=== PATIENT | female | born 1965 | race Hispanic/Latino ===

== ENCOUNTER 2017-07-18 09:57 | Inpatient (IN) | payer BC, OTHER ==
[2017-07-18 10:36] LABS: #Basophils 0.1 thou/uL (0.0-0.2); #Lymphocytes 1.9 thou/uL (1.20-3.40); #Monocytes 0.3 thou/uL (0.11-0.59); #Neutrophils 5.5 thou/uL (1.40-6.50); %Basophils 0.6 % (0.0-1.0); %Eosinophils 0.5 % (0.0-10.0); %Lymphocytes 24.5 % (21.0-51.0); %Monocytes 3.9 % (0.0-10.0); %Neutrophils 70.5 % (42.0-75.0); Hemoglobin 10.7 g/dL (12.0-16.0); Mean Corpuscular HGB CONC 33.5 g/dL (32.0-36.0); Mean Corpuscular Hemoglobin 29.5 pg (27.0-31.0); Mean Corpuscular Volume 87.9 fl (81.0-99.0); Platelet Count 246 thou/uL (130-400); RBC Distribution Width 11.9 % (11.5-14.5); Red Blood Cell (RBC) Count 3.63 mill/uL (4.20-5.40); White Blood Cell (WBC) Count 7.9 thou/uL (4.8-10.8)
--- NOTE | 2017-07-18 10:38 | CT ---
NONCONTRAST CT HEAD: Date: 07/18/17 HISTORY: Syncope. Lightheaded feeling. Tunnel vision and nausea. COMPARISON: None available. FINDINGS: There is no evidence of a hemorrhage, acute infarction, mass effect, or midline shift. Ventricular sy stem is normal in size, shape, and position. Visualized paranasal sinuses and mastoid air cells are c lear. Calvarial structures are intact. IMPRESSION: No acute intracranial abnormality is demonstrated. POS: ZAHRAA
--- NOTE | 2017-07-18 10:38 | RAD ---
CHEST 1 VIEW: Date: 07/18/17 HISTORY: Syncope. COMPARISON: None. FINDINGS: Lungs are clear. No pneumothorax or effusion. Cardiac silhouette and mediastinal contours within norm al limits. IMPRESSION: No acute intrathoracic abnormality. POS: ASHLYNH
[2017-07-18 10:53] LABS: ALT (SGPT) 66 U/L (8-55); AST (SGOT) 39 U/L (5-34); Albumin 4.5 g/dL (3.5-5.0); Alkaline Phosphatase 80 U/L (40-150); Anion Gap 12 mmol/L (10-20); BUN (Urea Nitrogen) 24 mg/dL (9.8-20.1); Bilirubin, Total 0.2 mg/dL (0.2-1.2); Calc. Creatinine Clearance 0 mL/min (70-130); Calcium 9.7 mg/dL (7.8-10.44); Carbon Dioxide 22 mmol/L (22-29); Chloride 107 mmol/L (98-107); Estimated GFR-MDRD Greater than 90; Globulin 3.1 g/dL (2.4-3.5); Glucose 93 mg/dL (70-105); Potassium 4.3 mmol/L (3.5-5.1); Protein, Total 7.6 g/dL (6.0-8.3); Sodium 137 mmol/L (136-145)
[2017-07-18] MEDS ORDERED: Pantoprazole 40 MG VIAL ONE (12:00)
[2017-07-18] MEDS ORDERED: Ondansetron HCl/PF 4 MG/2 ML Vial IVP PRN (14:04)
[2017-07-18] MEDS ORDERED: Ondansetron ODT 4 MG TAB PO PRN (14:04)
[2017-07-18] MEDS ORDERED: Dextrose 5 % And 0.9 % NaCl 1,000 ML IV SCH (14:15)
[2017-07-18] MEDS ORDERED: Lidocaine 1% PF 5 ML VIAL ONE (14:19)
[2017-07-18] MEDS ORDERED: Ondansetron HCl/PF 4 MG/2 ML Vial ONE (14:19)
[2017-07-18] MEDS ORDERED: Propofol 200 MG/20 ML VIAL ONE (14:19)
[2017-07-18] MEDS: Pantoprazole 80 MG in Sodium Chloride 0.9% 100 ML IVP SCH (16:19)
--- NOTE | 2017-07-18 16:57 | HP ---
DATE OF ADMISSION: 07/18/2017 CHIEF COMPLAINT: Syncope. HISTORY OF PRESENT ILLNESS: This is a 52-year-old female, who has a known history of hyperc holesterolemia, was feeling tired for the past few days and this morning around 1:30, she had a synco pal episode and she was feeling dizzy. The patient was immediately brought to the ER for further lois luation. When the patient arrived, she had hemoglobin of 10.4 and was having black stools. The michael ent mentioned she was having black stool since yesterday, but no joseph blood. She denied having any chest pain, no nausea, no vomiting, no diarrhea, no constipation. The patient is on Motrin, she take s 2 tablets in the night and 2 tablets in the morning for her right knee pain. She has been on this for quite a long time. Initially, she complained of pain in her knee where her primary doctor was re ferred to Orthopedics and started the patient on Motrin. The patient otherwise has no medical issues . The patient is seen by GI here, who planned to do the EGD. PAST MEDICAL HISTORY: 1. Hypercholesterolemia. 2. History of cervical cancer, where all the records are not available at this time and the patient is not sure of what type of cancer it is. PAST SURGICAL HISTORY: None. SOCIAL HISTORY: No history of smoking. No history of alcohol, no history of illicit drug use. FAMILY HISTORY: No significant family history of coronary artery disease, but cancer runs in her fam charles. Her mother of some sort of pelvic cancer, which the patient is not aware of. REVIEW OF SYSTEMS: All 12 systems are reviewed with the patient thoroughly along with the daughter a t the bedside. All systems are reviewed and all systems are reviewed and found to be negative at thi s time. The following complete review of systems was negative, unless otherwise mentioned in the HPI or below : Constitutional: Weight loss or gain, sense of well-being, ability to conduct usual activities, exerc ise tolerance. Skin/Breast: Rash, itching, changes in hair growth or loss, nail changes, breast lumps, tenderness, swelling, nipple discharge. Eyes: Vision, double vision, tearing, blind spots, pain. ENT/Mouth: Headaches (location, time of onset, duration, precipitating factors), vertigo, lightheade dness, injury. Vision, double vision, tearing, blind spots, pain, nose bleeding, colds, obstruction, discharge, dental difficulties, gingival bleeding, dentures, neck stiffness, pain, tenderness, gabriel s in thyroid or other areas. Cardiovascular: Precordial pain, substernal distress, palpitations, syncope, dyspnea on exertion, or thopnea, nocturnal paroxysmal dyspnea, edema, cyanosis, hypertension, heart murmurs, varicosities, ph lebitis, claudication. Respiratory: Pain, shortness of breath, wheezing, stridor, cough, hemoptysis, fever or night sweats. Gastrointestinal: Poor appetite, dysphagia, indigestion, abdominal pain, heartburn, eructation, naus ea, vomiting, hematemesis, jaundice, constipation, or diarrhea, abnormal stools (ara-colored, tarry, bloody, greasy, foul smelling), flatulence, hemorrhoids, recent changes in bowel habits. Genitourinary: Urgency, frequency, dysuria, nocturia, hematuria, polyuria, oliguria, unusual (or lloyd nge in) color of urine, stones, hesitancy, change in size of stream, dribbling, acute retention or in continence, libido, potency. Musculoskeletal: Pain, swelling, redness or heat of muscles or joints, limitation of motion, muscula r weakness, atrophy, cramps. Neurologic/Psychiatric: Convulsions, paralyses, tremor, incoordination, paresthesias, difficulties w ith memory of speech, sensory or motor disturbances, or muscular coordination (ataxia, tremor), emoti onal problems, anxiety, depression, previous psychiatric care, unusual perceptions, hallucinations. Allergy/Immunologic: Skin rash, anemia, bleeding tendency, polydipsia, polyuria, intolerance to heat or cold. HOME MEDICATIONS: None except for Motrin. ALLERGIES: No known drug allergies. PHYSICAL EXAMINATION: VITAL SIGNS: Blood pressures are 130/80, heart rate is 88, respiratory rate 18, saturations 98%. GENERAL: The patient is moderately built and moderately nourished, does not appear to be in acute di stress at this time. She is alert and oriented x3. HEENT: Atraumatic, normocephalic. PERRLA. Extraocular movements were intact. Oral mucosa is pink and moist. CARDIOVASCULAR: S1, S2 normal. No murmurs, rubs or gallops. LUNGS: Bilateral air entry was equal. No wheezing, no crackles. ABDOMEN: Soft, nontender, no guarding, no rebound tenderness. Bowel sounds are normal. MUSCULOSKELETAL: No calf tenderness. No pedal edema. No joint tenderness, no joint swelling. SKIN: No cyanosis, no erythema, no rash, no pallor. NEUROLOGIC: Cranial examination II-XII intact. No focal deficits were noted at this time. LABORATORY DATA: WBC is 7.9, hemoglobin is 10.7, hematocrit is 31.9, and platelets 246. Sodium is 1 37, potassium is 4.3, chloride is 107, bicarbonate is 22, BUN is 24, creatinine is 0.67, AST is 39, a nd ALT is 66. IMAGING: CT of the head was done and chest x-ray was done, unremarkable both. Chest x-ray was unrem arkable. No evidence of an acute cardiopulmonary process. ASSESSMENT AND PLAN: 1. Acute upper gastrointestinal bleed. 2. Anemia of acute blood loss. 3. Moderate dehydration. 4. History of hyperlipidemia. 5. Elevated liver enzymes. PLAN: 1. Plan is to closely monitor this patient. We will repeat hemoglobin at 1800. If the patient's he moglobin drops further to less than 8, we will plan for blood transfusion as the patient's hemoglobin was more than 11 before. GI has been consulted and Dr. Patiño will see the patient and possibly plan for EGD tomorrow or later this afternoon as the patient is n.p.o. at this time. We will start the pa tient on Protonix drip and will closely monitor. 2. The patient has low hemoglobin as explained above is 10.4. We will repeat hemoglobin at 1800 and plan to repeat hemoglobin tomorrow. If the patient drops hemoglobin to less than 7, we will plan to start her on blood transfusion and will also do iron levels and will start the patient on iron table ts tomorrow. 3. The patient has moderate dehydration. We will start the patient on normal saline at this time at 100 mL hour and closely monitor. The patient has history of hyperlipidemia. We will hold off on th e oral medications at this time and keep the patient n.p.o. 4. Deep venous thrombosis prophylaxis, sequential compression devices. 5. The patient has elevated liver enzymes. We will do ultrasound of the liver to look for any evide nce of gallbladder problems as she has elevated liver enzymes, but no Blake sign was noted at this t jackie. I spent 75 minutes with this patient.
[2017-07-18 19:06] VITALS: BMI 25.9
[2017-07-18 19:19] LABS: Hemoglobin 9.5 g/dL (12.0-16.0)
[2017-07-18] MEDS: Sodium Chloride 0.9% 1,000 ML IV SCH (19:45)
[2017-07-18] MEDS: Melatonin 3 MG TAB PO PRN (23:15)
--- NOTE | 2017-07-19 | CON ---
DATE OF CONSULTATION: 07/18/2017 REFERRING PHYSICIAN: Dr. Mina, [facility]. REASON FOR CONSULTATION: History of black tarry stool and syncope this morning. HISTORY OF PRESENT ILLNESS: Ms. Mariella Olivo is a very pleasant 52-year-old female w ho is a regular patient of Dr. Jeff Hawley. The patient does take baby aspirin once a day for sever al years. She is also taking Motrin twice a day for some knee pain. The patient developed some magdalena k tarry stool yesterday. She had two stools yesterday. She had 2 more stool today. This morning, s he felt faint and suddenly she passed out. She was initially seen by office and subsequent ly was referred to [facility]. The patient was found to have mild anemia. The hemoglobin is 10.7 , hematocrit is 31.9. The patient has no prior history of peptic ulcer disease. No history of heart burn, dyspepsia, indigestion. There is no prior history of GI bleeding. Her bowel movements are cony rly regular. No history of hematochezia. The patient had a syncopal episode approximately about six months ago as per the patient's family. She has met Dr. Jeff Hawley and was done. The patie nt has had no seizure disorder, no chronic headache. She has no relevant history. ALLERGIES: None. SOCIAL HISTORY: Patient is . She does not smoke or drink alcohol. MEDICAL ILLNESSES: 1. Hyperlipidemia. 2. History of knee pain for several months. 3. History of cervical cancer in [id number] and was seen in [facility]. Apparently, she has some procedure done and she has been there for followup every 6 months for two years. Subsequent release for followup. SURGERIES: Tubal ligation. FAMILY HISTORY: Her brother had some cancer, but site is unknown, possibly gastric versus uterine. MEDICATIONS: Aspirin, Motrin. REVIEW OF SYSTEMS: A 10-point review. Constitutional: No history of fever, no night sweats. Good appetite, no weight loss. RETAIL LOAN ORIGINATOR ASSISTANT: History of syncope at this morning and she had a syncopal episode si x months ago. No history of seizure disorder. No history of chronic headache, no TIA. Respiratory: No history of chronic cough, hemoptysis, dyspnea. Cardiovascular: No chest pain, no palpitation, n o dyspnea, orthopnea or PND. Gastrointestinal: As in history of present illness. Genitourinary: N o dysuria, hematuria or frequent urination. Gynecological: No history of any renal bleeding. Muscu loskeletal: History of knee pain and has been taking Motrin off and on. Neurologic, Endocrine, Michael tological: Nonrelevant. PHYSICAL EXAMINATION: GENERAL: She is awake, alert, oriented to time, place and person. She does not speak Hungarian and mo st of the history was obtained talking to the family. Her son, , and also daughter is in the room. VITAL SIGNS: Pulse is 80, blood pressure 125/70. HEENT: Conjunctivae clear. NECK: Supple. No adenitis or thyromegaly noted. CARDIOVASCULAR: First and second heart sounds were normal. LUNGS: Clear to auscultation. ABDOMEN: Abdomen is soft. Abdomen is nondistended. Abdomen is nontender. There is no organomegaly or masses. EXTREMITIES: Reveal no edema. LABORATORY DATA AND X-RAY FINDINGS: Shows mild anemia, hemoglobin 10.7, hematocrit 31, MCV normal, p latelet count is 246,000, polymorphs 70, lymphocytes 24, WBC 7900. Chem-7 shows mildly elevated BUN of 24, most recent bleeding. Her electrolytes are normal. Her AST is 39, ALT is 66, bilirubin is 0. 2, alkaline phosphatase is 80. CLINICAL IMPRESSION: A 52-year-old female with history of black tarry stool since yesterday. She johnson d a syncopal episode this morning with some bleeding. The patient has two stools today, but has had no stool anymore. She has no abdominal pain, no nausea, no vomiting. No prior history of peptic ulc er. 1. Hyperlipidemia. 2. Abnormal liver function tests, most likely drug induced. However, she does have a further workup done to rule out any hepatitis C. RECOMMENDATIONS: 1. IV PPI. 2. Follow up H&H. 3. Transfuse p.r.n. 4. EGD today and I will make further recommendations.
[2017-07-19] MEDS: Sodium Chloride 0.9% 1,000 ML IV SCH ×3 (02:27→23:19)
[2017-07-19] MEDS: Pantoprazole 80 MG in Sodium Chloride 0.9% 100 ML IVP SCH ×2 (02:35→13:26)
[2017-07-19] MEDS: Acetaminophen 325 MG TAB PO PRN ×2 (02:35→21:38)
[2017-07-19 05:36] LABS: #Eosinphils 0.1 thou/uL (0.0-0.7); #Lymphocytes 2.2 thou/uL (1.20-3.40); #Monocytes 0.3 thou/uL (0.11-0.59); #Neutrophils 2.5 thou/uL (1.40-6.50); %Basophils 0.4 % (0.0-1.0); %Eosinophils 2.3 % (0.0-10.0); %Lymphocytes 43.4 % (21.0-51.0); %Monocytes 5.7 % (0.0-10.0); %Neutrophils 48.2 % (42.0-75.0); Hemoglobin 8.1 g/dL (12.0-16.0); Mean Corpuscular HGB CONC 33.5 g/dL (32.0-36.0); Mean Corpuscular Hemoglobin 29.8 pg (27.0-31.0); Mean Corpuscular Volume 88.9 fl (81.0-99.0); Mean Platelet Volume 6.7 fL (7.4-10.4); Platelet Count 165 thou/uL (130-400); Red Blood Cell (RBC) Count 2.72 mill/uL (4.20-5.40); White Blood Cell (WBC) Count 5.1 thou/uL (4.8-10.8)
[2017-07-19 05:49] LABS: Anion Gap 9 mmol/L (10-20); BUN (Urea Nitrogen) 13 mg/dL (9.8-20.1); Calc. Creatinine Clearance 84 mL/min (70-130); Calcium 8.3 mg/dL (7.8-10.44); Carbon Dioxide 24 mmol/L (22-29); Chloride 113 mmol/L (98-107); Estimated GFR-MDRD 82; Glucose 86 mg/dL (70-105); Potassium 4.3 mmol/L (3.5-5.1); Sodium 142 mmol/L (136-145)
--- NOTE | 2017-07-19 07:02 | OP ---
DATE OF SURGERY: 07/18/2017 OPERATIVE PROCEDURE: Esophagogastroduodenoscopy with biopsy. PREOPERATIVE DIAGNOSES: A 52-year-old Latin-[place]inid[place] female with black tarry stool since yesterday, having syncopal episode this morning. The patient underwent esophagogastroduodenoscopy. POSTOPERATIVE DIAGNOSES: 1. Three gastric ulcers over the gastric antrum. 2. One ulcer in the duodenal bulb. All the ulcers were nonbleeding and also the ulcer bases appears clean .. PROCEDURE NOTE: The patient was placed on her left lateral position under given sedation by Anesthesia Department. A Pentax video gastroscope under direct vision was passed down the oropharynx, past the GE junction, into the stomach and subsequently into the descending duodenum. The esophageal mucosa appears normal. The GE junction showed mild friability and erythema. No active bleeding seen. The stomach was completely free of any blood. There is no old blood or any coffee-ground material. The fundus, cardia and gastric body , no pathology seen. The gastric antrum shows multiple ulcerations. One of the ulcers was very large and measured approximately around 2 cm in length and 1 cm in width. The ulcer base appears clean. Water was used to irrigate and wash out that area, but I do not see any visible vessel. The ulcer margin one area appears slightly erythematous. There are two more ulcers. Both ulcers appear to besmall maybe about 6 to 7 mm in size. The duodenal bulb showed another ulceration. Again, the ulcer base appears clean. The descending duodenum, no pathology seen. Biopsy obtained from the gastric antrum and gastric body. The stomach was decompressed and scope removed. RECOMMENDATIONS: 1. Continue IV Protonix. 2. Clear liquid diet. 3. Follow up H and H. MTDD
--- NOTE | 2017-07-19 08:34 | ULT ---
RIGHT UPPER QUADRANT ULTRASOUND: Date: 07/19/17 PROVIDED CLINICAL HISTORY: Elevated liver enzymes. FINDINGS: There is a focal, somewhat mass-like area of altered echogenicity measuring about 3.0 cm in the regio n of the pancreatic tail. This could reflect a pancreatic mass or possibly a splenule. The visualized IVC appears normal. Liver diffusely echogenic, compatible with fatty infiltration, without evidence for mass or intrahepatic biliary ductal dilatation. Common duct is not dilated. Gallbladder demonstra elvira no stones, wall thickening, or pericholecystic fluid. Right kidney demonstrates no hydronephrosis or mass. IMPRESSION: 1. Fatty infiltration of the liver. 2. Pancreatic tail mass versus splenule. Correlation with CT abdomen pancreatic protocol recommended . POS: ZAHRAA
[2017-07-19] MEDS ORDERED: FLU VACC QS2017-18 36 mo. & older 0.5 ML SYRINGE IM ONE (09:00)
--- NOTE | 2017-07-19 12:41 | PDOC.PN ---
- Subjective Encounter Start Date: 07/19/17 Encounter Start Time: 10:00 Patient is seeen today, alert and oriented. No other Concer snoted. Discussed with Daughter About the EGD, and US findings of Mass on pancreas. - Objective Resuscitation Status: Resuscitation Status FULL:Full Resuscitation MAR Reviewed: Yes Vital Signs & Weight: Vital Signs (12 hours) Temp Pulse Resp BP Pulse Ox 07/19/17 08:34 97.8 F 85 17 111/59 L 98 07/19/17 04:00 97.6 F 68 16 94/52 L 95 Weight Weight 132 lb 11.2 oz I&O: 07/18/17 07/19/17 07/20/17 06:59 06:59 07:59 Intake Total 1690 Balance 1690 Result Diagrams: 07/19/17 05:29 07/19/17 05:29 Radiology Reviewed by me: Yes EKG Reviewed by me: Yes Phys Exam - Physical Examination HEENT: PERRLA, moist MMs Neck: no nodes, no JVD Respiratory: no wheezing, no rales Cardiovascular: RRR, no significant murmur Gastrointestinal: soft, non-tender Musculoskeletal: no edema, pulses present Neurological: non-focal, normal sensation Lymphatic: no nodes Psychiatric: normal affect, A&O x 3 Skin: no rash, normal turgor Dx/Plan (1) Acute gastric ulcer with bleeding Code(s): K25.0 - ACUTE GASTRIC ULCER WITH HEMORRHAGE Status: Acute Comment: EGD showed 2cm ulcer on Antrum, Pt on protonix drip, will transiotion to IV protionic, biospy of the ulcer edge takem, pending resilts. Clear liquid diet today. (2) Acute blood loss anemia Code(s): D62 - ACUTE POSTHEMORRHAGIC ANEMIA Status: Acute Comment: Drop in Hb noted, Will start on iron Meds, will recheck Hb at 1600, if less then 7 will do PRBC transfusion.Will monitor her until Hb stbailizes. (3) Pancreatic mass Status: Acute Comment: Will do a CT with pancreatic protocol, Family h/o Abdominal malignancy per Daughter. Will evaalute after the CT results. (4) Moderate dehydration Code(s): E86.0 - DEHYDRATION Status: Acute Comment: resloved. (5) Syncope Code(s): R55 - SYNCOPE AND COLLAPSE Status: Acute Qualifiers: Syncope type: vasovagal syncope Qualified Code(s): R55 - Syncope and collapse Comment: Likely from Anemia or vasovagal. Will tamy Monitor with pt/OT evaluation. - Plan cont current plan of care, plan discussed w/ family, PT/OT, DVT proph w/SCDs * . - Discharge Day Encounter end time: 10:35 Review of Systems - Review of Systems Constitutional: negative: fever, chills, sweats, weakness, malaise, other Eyes: negative: Pain, Vision Change, Conjunctivae Inflammation, Eyelid Inflammation, Redness, Other ENT: negative: Ear Pain, Ear Discharge, Nose Pain, Nose Discharge, Nose Congestion, Mouth Pain, Mouth Swelling, Throat Pain, Throat Swelling, Other Respiratory: negative: Cough, Dry, Shortness of Breath, Hemoptysis, SOB with Excertion, Pleuritic Pain, Sputum, Wheezing Cardiovascular: negative: chest pain, palpitations, orthopnea, paroxysmal nocturnal dyspnea, edema, light headedness, other Gastrointestinal: Abdominal Pain. negative: Nausea, Vomiting, Diarrhea, Constipation, Melena, Hematochezia, Other Genitourinary: negative: Dysuria, Frequency, Incontinence, Hematuria, Retention , Other Musculoskeletal: negative: Neck Pain, Shoulder Pain, Arm Pain, Back Pain, Hand Pain, Leg Pain, Foot Pain, Other Skin: negative: Rash, Lesions, Da, Bruising, Other Neurological: negative: Weakness, Numbness, Incoordination, Change in Speech, Confusion, Seizures, Other - Medications/Allergies Allergies/Adverse Reactions: Allergies Allergy/AdvReac Type Severity Reaction Status Date / Time No Known Allergies Allergy Unverified 07/18/17 19:08 Medications: Current Medications Acetaminophen (Tylenol) 650 mg PO Q4H PRN PRN Reason: Headache/Fever or Mild Pain Last Admin: 07/19/17 02:35 Dose: 650 mg Docusate Sodium (Colace) 100 mg PO BIDPRN AMEE Sodium Chloride (Normal Saline 0.9%) 1,000 mls @ 100 mls/hr IV .Q10H AMEE Last Admin: 07/19/17 02:27 Dose: 1,000 mls Pantoprazole Sodium 80 mg/ (Sodium Chloride) 100 mls @ 10 mls/hr IVP INF AMEE Last Admin: 07/19/17 02:35 Dose: 100 mls Melatonin (Melatonin) 3 mg PO HS PRN PRN Reason: Insomnia Last Admin: 07/18/17 23:15 Dose: 3 mg Sodium Chloride (Flush - Normal Saline) 10 ml IVF Q12HR AMEE Last Admin: 07/19/17 09:12 Dose: Not Given Sodium Chloride (Flush - Normal Saline) 10 ml IVF PRN PRN PRN Reason: Saline Flush
[2017-07-19] MEDS: Docusate 100 MG CAP PO SCH (13:25)
--- NOTE | 2017-07-19 13:34 | CT ---
CT OF ABDOMEN AND PELVIS PERFORMED WITH AND WITHOUT CONTRAST ENHANCEMENT: Date: 07/19/17 HISTORY: Follow-up for evaluation of a cystic appearing mass in the pancreatic body/tail region noted on recen t ultrasound examination. COMPARISON: Ultrasound study performed earlier today. FINDINGS: This was done as a three phase study per the pancreatic mass protocol. The lung bases are clear. The liver and spleen are normal in size. No evidence of any mass. Gallbladder region is unremarkable. Right and left adrenal glands, and right and left kidneys are normal in size. No significant periaort ic or mesenteric adenopathy. There is a 2.8 cm low attenuation mass within the pancreatic body. It has CT Hounsfield unit numbers of 6 on the precontrast images, only increasing to 17 on the postcontrast images, still falling withi n a cystic range. It does not show any soft tissue nodularity. There are no calcifications. There gallegos s not appear to be any communication with the pancreatic duct. IMPRESSION: Cystic mass of the pancreas. This does not have definitive malignant features. In a patient of this a ge and with location in the body region, one of the prime considerations would be mucinous cystic rizo creatic tumor, although entities such as pseudocyst, given appropriate clinical history, would be oth er possibilities. I would recommend GI consultation and consideration for endoscopic ultrasound for f ollow-up and for decision making for further imaging follow-up. POS: ZAHRAA
[2017-07-19] MEDS ORDERED: ISOVUE-370 76%-LOCM 1 ML ONE (13:56)
[2017-07-19 16:33] LABS: #Eosinphils 0.1 thou/uL (0.0-0.7); #Lymphocytes 2.3 thou/uL (1.20-3.40); #Monocytes 0.2 thou/uL (0.11-0.59); #Neutrophils 2.9 thou/uL (1.40-6.50); %Basophils 0.1 % (0.0-1.0); %Eosinophils 1.7 % (0.0-10.0); %Lymphocytes 41.3 % (21.0-51.0); %Monocytes 4.3 % (0.0-10.0); %Neutrophils 52.6 % (42.0-75.0); Hemoglobin 8.3 g/dL (12.0-16.0); Mean Corpuscular HGB CONC 34.3 g/dL (32.0-36.0); Mean Corpuscular Hemoglobin 30.4 pg (27.0-31.0); Mean Corpuscular Volume 88.6 fl (81.0-99.0); Mean Platelet Volume 6.6 fL (7.4-10.4); Platelet Count 166 thou/uL (130-400); Red Blood Cell (RBC) Count 2.71 mill/uL (4.20-5.40); White Blood Cell (WBC) Count 5.6 thou/uL (4.8-10.8)
--- NOTE | 2017-07-19 21:04 | PRG ---
DATE OF SERVICE: 07/19/2017 SUBJECTIVE: This is a 52-year-old Latin-Bangl[place] female hospitalized with anemia, history of melena stool and syncope. She had a EGD done yesterday and was found to have multiple gastric ulcers. The ulcers were nonbleeding. The patient has done very well overnight without any problem. No abdominal pain, no nausea, no vomiting. She has seen no stool over the last 24 hours. Her blood count on adm ission 10.7 has dropped to 8.1 today, most likely hemodilution as the BUN has dropped from 24-13. Th e patient is passing some flatus, but had no stool. She is not feeling dizzy and she is ambulatory. OBJECTIVE: VITAL SIGNS: Stable. Her pulse is 92 and blood pressure 108/55. HEENT: Conjunctivae clear. LUNGS: Within normal limits. ABDOMEN: Soft to palpate. No organomegaly. No tenderness. No masses. LABORATORY AND IMAGING DATA: The most recent lab data shows mild drop in blood count 8.1 and 24.2. She had abdominal sonogram because of abnormal LFTs. Sonogram showed no gallstones or any new abnorm ality. She was found to have a lesion tail of the pancreas and a subsequent CAT scan done showed a 2 .8 cm cystic lesion in the pancreas. CLINICAL IMPRESSION: 1. Gastrointestinal bleeding. 2. Gastric ulcer. 3. Pancreatic cystic lesion, needs further evaluation and endosonography. RECOMMENDATIONS: 1. Advance regular diet. 2. Follow hemoglobin and hematocrit. 3. Continue proton-pump inhibitor. 4. Arrange for an outpatient endosonography in the near future.
[2017-07-19] MEDS: Melatonin 3 MG TAB PO PRN (23:13)
[2017-07-20 04:44] LABS: #Eosinphils 0.2 thou/uL (0.0-0.7); #Lymphocytes 2.5 thou/uL (1.20-3.40); #Monocytes 0.4 thou/uL (0.11-0.59); #Neutrophils 2.8 thou/uL (1.40-6.50); %Basophils 0.2 % (0.0-1.0); %Eosinophils 2.7 % (0.0-10.0); %Lymphocytes 41.9 % (21.0-51.0); %Monocytes 7.1 % (0.0-10.0); Hemoglobin 7.8 g/dL (12.0-16.0); Mean Corpuscular HGB CONC 34.3 g/dL (32.0-36.0); Mean Corpuscular Hemoglobin 30.6 pg (27.0-31.0); Mean Corpuscular Volume 89.1 fl (81.0-99.0); Mean Platelet Volume 6.9 fL (7.4-10.4); Platelet Count 174 thou/uL (130-400); Red Blood Cell (RBC) Count 2.55 mill/uL (4.20-5.40); White Blood Cell (WBC) Count 5.9 thou/uL (4.8-10.8)
[2017-07-20 08:11] VITALS: TEMP 97.8
[2017-07-20] MEDS: Sodium Chloride 0.9% 1,000 ML IV SCH (09:58)
[2017-07-20 10:05] VITALS: BP 113/73
[2017-07-20] MEDS: Docusate 100 MG CAP PO SCH (11:40)
--- NOTE | 2017-07-20 13:23 | DIS ---
DATE OF ADMISSION: 07/18/2017 DATE OF DISCHARGE: 07/20/2017 ADMITTING DIAGNOSIS: Acute upper gastrointestinal bleed. DISCHARGE DIAGNOSIS: Acute upper gastrointestinal bleed. SECONDARY DIAGNOSES: 1. Acute gastric ulcers. 2. Acute anemia of blood loss. 3. Iron deficiency anemia. 4. Acute syncope. 5. Moderate dehydration. CONSULTANTS INVOLVE IN THE CARE: Dr. Patiño from Gastroenterology. PROCEDURES DONE DURING THIS ADMISSION: EGD showing an evidence of gastric ulcers of the antrum. Thr ee ulcers were found, one is 2 cm, another is 9 mm. HISTORY OF PRESENT ILLNESS AND HOSPITAL COURSE: In brief, this is a 52-year-old female with known history of hypercholesterolemia, was feeling tired and dizzy and presyncopal episode at home d ue to which patient was brought to the ER by her daughters. The patient was noted to have hemoglobin of 10.4 and having black stools, so GI was consulted and EGD was performed which showed an evidence of a gastric antral ulcers and biopsies were taken at that time. The patient was on Motrin for chron ic knee pain and she is to take it religiously twice a day 400 mg and the patient is educated to not be on any NSAIDs at this time. Her hemoglobin was closely monitored. Her hemoglobin the day of disc harge was 7.8 and discussed this with Dr. Patiño who suggested to put the patient on iron medications a t this time and I will closely monitor. The patient was having one black stool on the day of dischar ge and otherwise no frequent bowel movements. The patient's family is informed about any frequent bl ack stools to bring the patient back to the ER for further evaluation and advised to avoid all NSAIDs and even aspirin. The patient was discharged home in stable condition. PHYSICAL EXAMINATION: VITAL SIGNS: Blood pressures are 113/73, heart rate is 81, respirations 18, saturations 92%. GENERAL: The patient is moderately built, moderately nourished, does not appear to be in acute distr ess at this time. Alert, oriented x3. HEENT: Atraumatic, normocephalic. PERRLA. Extraocular movement are intact. Oral mucosa is pink an d moist. CARDIOVASCULAR: S1, S2 normal. No murmurs, rubs or gallops. LUNGS: Bilateral air entry was equal. No wheezing, no crackles. ABDOMEN: Soft, nontender. No guarding. No rebound tenderness. Bowel sounds normal. HOME MEDICATIONS: Pravastatin 10 mg p.o. daily. NEW MEDICATIONS: Ferrous sulfate 325 mg p.o. b.i.d., melatonin 3 mg p.o. at bedtime for insomnia and pantoprazole 40 mg p.o. b.i.d., continue for 1 month. DISCHARGE INSTRUCTIONS: 1. ACTIVITY: Continue activity as tolerated. 2. Advised to follow up with Gastroenterology in 1-2 weeks for ruling out pancreatic cyst. Patient is scheduled to do transesophageal ultrasound. 3. DIET: Continue with the bland diet. Advised to avoid spicy food and advised to monitor for any multiple black stools, to return back to the ER. I spent 35 minutes with this patient.
[2017-07-20] MEDS ORDERED: Ferrous Sulfate 325 MG TAB PO SCH (17:00)
--- NOTE | 2017-07-20 17:38 | PRG ---
DATE OF SERVICE: 07/20/2017 SUBJECTIVE: This is a 52-year-old Latin-[place] female hospitalized over the weekend with syncope, history of black tarry stool and anemia. Admitting hemoglobin is 10.7 which is decreasing down slowly. However, the patient has no active bleeding. She had one stool yesterday morning and the stool was starry. Since that time, she had no more black stool. She does not feel dizzy. She is ambulatory. The hemoglobin today has dropped to 7.8, most likely from redistribution of the blood volume than active bleeding. An abdominal CAT scan shows a 3 cm cystic mass in the tail of pancreas. OBJECTIVE: GENERAL: Awake, alert, and communicative. VITAL SIGNS: Stable. Afebrile, pulse is 81, blood pressure is 130/73. LUNGS: Within normal limits. ABDOMEN: Soft, nontender. No organomegaly. CLINICAL IMPRESSION: 1. Gastric ulcer x4. Recent bleeding. 2. Drop in her blood count from 8.3 to 7.8 today and most likely redistribution of blood volume than active bleeding. She has had no stool over the last 24 hours. 3. Pancreatic cyst needs evaluation by [facility]. RECOMMENDATION: 1. From GI standpoint, she can be discharged home on Protonix 40 once a day. 2. Iron supplement. 3. The patient advised to take it easy for the next 1 week or so. 4. The patient will come back to me in 2 weeks and plan for the endosonography as an outpatient. SHAMAR
== END 2017-07-20 13:05 | disposition home or self-care (01) | DRG 378 ==
LOC: EEVIPCON 09:57 → ERS 09:57 → 2NO 12:45 → T4-B 07-19 16:54
PROVIDERS: ADMIT Family Medicine; ATTEND Family Medicine
PROC: 0DB68ZX Excision of Stomach, Via Natural or Artificial Opening Endoscopic, Diagnostic (ICD-10-PCS; principal; 2017-07-18)
DX: K25.0 Acute gastric ulcer with hemorrhage (principal); K86.2 Cyst of pancreas; D62 Acute posthemorrhagic anemia; R55 Syncope and collapse; K26.9 Duodenal ulcer, unspecified as acute or chronic, without hemorrhage or perforation; E86.0 Dehydration; E78.00 Pure hypercholesterolemia, unspecified; Z85.41 Personal history of malignant neoplasm of cervix uteri; D50.9 Iron deficiency anemia, unspecified; M25.569 Pain in unspecified knee; Z79.1 Long term (current) use of non-steroidal anti-inflammatories (NSAID); Z79.82 Long term (current) use of aspirin
CPT/HCPCS: 36415; 70450; 71045; 74170; 76705; 80048; 80053; 82274; 85025; 86850; 86900; 86901; 88305; 88312; 93005; 94760; 96361; 96374; A4216; C9113; G8978-GP-CI; G8979-GP-CI; G8980-GP-CI; J2001; J2405; J2704; J7050

== ENCOUNTER 2017-10-15 06:30 | Day surgery (SDC) | payer BC ==
[2017-10-14 13:45] VITALS: BMI 28.9
--- NOTE | 2017-10-15 05:44 | HP ---
DATE OF ADMISSION: 10/15/2017 SHORT-STAY HISTORY AND PHYSICAL HISTORY OF PRESENT ILLNESS: This is a 52-year-old Latin-[place]ym[place] female with history of bleeding ulc er disease, 3 months ago. She had an EGD and found to have gastric ulcer and also ulcer in the duode nal bulb. The patient has done very well since the last admission. She was asymptomatic. Her blood count was getting better. She had no abdominal pain. No nausea or vomiting. The patient comes in for an EGD for ulcer healing. MEDICAL ILLNESSES: 1. Gastric ulcer - duodenal ulcer. 2. Recent GI bleeding. 3. Depression. 4. Hyperlipidemia. ALLERGIES: None. PHYSICAL EXAMINATION: VITAL SIGNS: Pulse 70, blood pressure 110/70. HEENT: Conjunctivae clear. CARDIOVASCULAR SYSTEM: Within normal limits. LUNGS: Within normal limits. ABDOMEN: Soft to palpate. No organomegaly. No tenderness. No masses. ADMITTING DIAGNOSES: Gastric ulcer - duodenal ulcer. The patient had recent gastrointestinal bleedi ng. The patient to undergo EGD for ulcer healing.
[2017-10-15] MEDS ORDERED: PROPOFOL 200 MG/20 ML VIAL ONE (15:32)
[2017-10-15] MEDS ORDERED: Lidocaine 1% PF 5 ML VIAL ONE (15:32)
--- NOTE | 2017-10-15 16:14 | OP ---
DATE OF SURGERY: 10/15/2017 OPERATIVE PROCEDURE: Esophagogastroduodenoscopy. PREOPERATIVE DIAGNOSIS: A 52-year-old Latin-[place] female with gastrointestinal bleeding with esophagogastroduodenoscopy showing gastric ulcer and also a duodenal ulcer. The patient was on medical therapy for 3 months. The patient is undergoing followup esophagogastroduodenoscopy. POSTOPERATIVE DIAGNOSES: 1. Healed gastric ulcer. 2. Healed duodenal ulcer. The exam is actually normal. PROCEDURE NOTE: The patient was placed on her left lateral position and was given sedation by Anesthesia Department. A Pentax video gastroscope under direct vision passed down the oropharynx, past the GE junction, into the stomach and subsequently the descending duodenum. The esophageal mucosa appeared normal throughout the esophagus. The GE junction, no pathology seen. The fundus and cardia, no pathology seen. The gastric body, no pathology seen. The gastric antrum showed healing of gastric ulcer.. The duodenal bulb again showed healed ulcer. The descending duodenum, no pathology seen. The stomach was decompressed and the scope removed DISCHARGE PLANNING: Ms. Mariella Olivo is a very pleasant 52-year-old Latin- [place] female with GI bleeding 3 months ago and EGD showed gastric ulcer and also ulcer in the bulb. The EGD at the present time showed no ulcers. The patient did well post procedure and is being discharged home. DISCHARGE INSTRUCTIONS: 1. The patient will stay on the PPI for the next 3 months because of recent bleeding. 2. We will plan to obtain abdominal CAT scan in the near future because of pancreatic cyst. [facility]
== END 2017-10-15 10:15 | disposition home or self-care (01) ==
LOC: SDC 06:30 → EEVIPCON 06:30 → SDC 10:15
PROVIDERS: ATTEND Internal Medicine Gastroenterology
PROC: 0DJ08ZZ Inspection of Upper Intestinal Tract, Via Natural or Artificial Opening Endoscopic (ICD-10-PCS; principal; 2017-10-15)
DX: K25.9 Gastric ulcer, unspecified as acute or chronic, without hemorrhage or perforation (principal); K26.9 Duodenal ulcer, unspecified as acute or chronic, without hemorrhage or perforation; F32.9 Major depressive disorder, single episode, unspecified; E78.5 Hyperlipidemia, unspecified; Z79.899 Other long term (current) drug therapy
CPT/HCPCS: J2001; J2704

== ENCOUNTER 2017-11-21 09:11 | Outpatient (CLI) | payer BC ==
[2017-11-21] MEDS ORDERED: ISOVUE-370 76%-LOCM 1 ML ONE (12:14)
== END 2017-11-21 09:12 | disposition home or self-care (01) ==
LOC: BICCT 09:11
PROVIDERS: ATTEND Internal Medicine Gastroenterology
DX: K86.2 Cyst of pancreas (principal)
CPT/HCPCS: 74170

== ENCOUNTER 2017-12-05 10:56 | Outpatient (CLI) | payer BC | END 2017-12-05 10:57 | disposition home or self-care (01) | LOC: BICMRI 10:56 | PROVIDERS: ATTEND Orthopaedic Surgery | DX: M25.562 Pain in left knee (principal); M22.2X2 Patellofemoral disorders, left knee ==

== ENCOUNTER 2018-03-17 08:05 | Outpatient (CLI) | payer BC | END 2018-03-17 08:06 | disposition home or self-care (01) | LOC: BICMAMMO 08:05 | PROVIDERS: ATTEND Physician Assistant | DX: Z12.31 Encounter for screening mammogram for malignant neoplasm of breast (principal) | CPT/HCPCS: 77063; 77067 ==

== ENCOUNTER 2018-04-09 08:06 | Outpatient (CLI) | payer BC ==
--- NOTE | 2018-04-09 09:33 | CT ---
CT OF THE ABDOMEN ONLY WITH AND WITH CONTRAST: COMPARISON: 07/19/2017. HISTORY: Pancreatic cyst. This was drained and it reoccurred. TECHNIQUE: Multiple contiguous axial images were obtained in a CT of the abdomen only without and with IV contra st. P.o. contrast was administered. Postcontrast images were obtained in the arterial and portal ve nous phases. FINDINGS: There is a 2.0 cm nonenhancing lesion in the body of the pancreas. There is smaller than on the prio r examination and may represent a small pseudocyst. No pancreatic ductal dilatation is seen. No oth er pancreatic abnormality is seen. The liver, gallbladder, kidneys, adrenal glands, and spleen are unremarkable. No free air, free flui d or stranding changes are seen in the abdomen. The visualized large and small bowel are unremarkable. The visualized reproductive organs are unrema rkable. The patient has tubal ligation clips. No abdominal adenopathy is seen. The osseous structures, visualized inferior thorax, and abdominal wall soft tissues are unremarkable. IMPRESSION: Decreased size of low-density pancreatic lesion. This likely represents a cyst. POS: ASHLYN
[2018-04-09] MEDS ORDERED: Iopamidol 370 76% 100 ML VIAL ONE (13:15)
== END 2018-04-09 08:07 | disposition home or self-care (01) ==
LOC: CT 08:06
PROVIDERS: ATTEND Internal Medicine Gastroenterology
DX: K86.2 Cyst of pancreas (principal); K86.89 Other specified diseases of pancreas
CPT/HCPCS: 74170

== ENCOUNTER 2019-03-18 07:38 | Outpatient (CLI) | payer BC ==
--- NOTE | 2019-03-18 08:20 | MMO ---
Bilateral MAMMO Bilat Screen [facility]. CLINICAL HISTORY: Patient is 54 years old and is seen for screening. The patient has no family history of breast cancer. The patient has no personal history of cancer. VIEWS: The views performed were: bilateral craniocaudal with tomosynthesis and bilateral mediolateral oblique with tomosynthesis. FILMS COMPARED: The present examination has been compared to prior imaging studies performed at [facility] on 02/27/2015, 03/05/2016, 03/07/2017 and 03/17/2018. This study has been interpreted with the assistance of computer-aided detection. MAMMOGRAM FINDINGS: There are scattered fibroglandular densities. There are no suspicious masses, suspicious calcifications, or new areas of architectural distortion. IMPRESSION: THERE IS NO MAMMOGRAPHIC EVIDENCE OF MALIGNANCY. A ROUTINE FOLLOW-UP MAMMOGRAM IN 1 YEAR IS RECOMMENDED. THE RESULTS OF THIS EXAM WERE SENT TO THE PATIENT. ACR BI-RADS Category 1 - Negative MAMMOGRAPHY NOTE: 1. A negative mammogram report should not delay a biopsy if a dominant of clinically suspicious mass is present. 2. Approximately 10% to 15% of breast cancers are not detected by mammography. 3. Adenosis and dense breasts may obscure an underlying neoplasm. Reported by: Gracie LEONARD Electonically Signed: [id number]
== END 2019-03-18 07:39 | disposition home or self-care (01) ==
LOC: BICMAMMO 07:38
PROVIDERS: ATTEND Physician Assistant
DX: Z12.31 Encounter for screening mammogram for malignant neoplasm of breast (principal)
CPT/HCPCS: 77063; 77067

== ENCOUNTER 2020-03-29 11:38 | Outpatient (CLI) | payer BC ==
--- NOTE | 2020-03-29 12:01 | MMO ---
Bilateral MAMMO Bilat Screen [facility]. CLINICAL HISTORY: Patient is 55 years old and is seen for screening. The patient has no family history of breast cancer. The patient has no personal history of cancer. VIEWS: The views performed were: bilateral craniocaudal with tomosynthesis and bilateral mediolateral oblique with tomosynthesis. FILMS COMPARED: The present examination has been compared to prior imaging studies performed at [facility] on 03/05/2016, 03/07/2017, 03/17/2018 and 03/18/2019. This study has been interpreted with the assistance of computer-aided detection. MAMMOGRAM FINDINGS: There are scattered fibroglandular densities. There are no suspicious masses, suspicious calcifications, or new areas of architectural distortion. IMPRESSION: THERE IS NO MAMMOGRAPHIC EVIDENCE OF MALIGNANCY. A ROUTINE FOLLOW-UP MAMMOGRAM IN 1 YEAR IS RECOMMENDED. THE RESULTS OF THIS EXAM WERE SENT TO THE PATIENT. ACR BI-RADS Category 1 - Negative MAMMOGRAPHY NOTE: 1. A negative mammogram report should not delay a biopsy if a dominant of clinically suspicious mass is present. 2. Approximately 10% to 15% of breast cancers are not detected by mammography. 3. Adenosis and dense breasts may obscure an underlying neoplasm. Reported by: BRUCE JALLOH MD Electonically Signed: [id number]
== END 2020-03-29 11:39 | disposition home or self-care (01) ==
LOC: BICMAMMO 11:38
PROVIDERS: ATTEND Family Medicine
DX: Z12.31 Encounter for screening mammogram for malignant neoplasm of breast (principal)
CPT/HCPCS: 77063; 77067

== ENCOUNTER 2021-04-02 15:37 | Outpatient (CLI) | payer BC | END 2021-04-02 15:38 | disposition home or self-care (01) | LOC: BICMAMMO 15:37 | PROVIDERS: ATTEND Family Medicine | DX: Z12.31 Encounter for screening mammogram for malignant neoplasm of breast (principal) | CPT/HCPCS: 77063; 77067 ==

== ENCOUNTER 2023-04-28 08:25 | Outpatient (CLI) | payer BC | END 2023-04-28 08:26 | disposition home or self-care (01) | LOC: BICMAMMO 08:25 | PROVIDERS: ATTEND Family Medicine | DX: Z12.31 Encounter for screening mammogram for malignant neoplasm of breast (principal) | CPT/HCPCS: 77063; 77067 ==